=== PATIENT | female | born 1955 | race Caucasian/White ===

== ENCOUNTER → 2017-05-10 | Outpatient (CLI) | payer OTHER ==
[~2017-05-10] MED LIST: FLUZONE 2045 MCG/011; LOVASTATIN 20 M20 MG PO; MINIPRIN81 MG PO; NAPROSYN250 MG PO; PNEUMOVAX25 MCG/0.5; PRILOSEC 20 MG20 MG PO; TOPROL XL25 MG PO; VIT D; ZOCOR 20 MG TAB20 M1 PO
== END ==
LOC: M.ULTRA 07:46
DX: E21.3 Hyperparathyroidism, unspecified (principal)